=== PATIENT | male | born 1975 | race Two or more races ===

== ENCOUNTER 2021-09-10 09:10 | Inpatient (IN) | payer SELFPAY ==
[~2021-09-10] VITALS: Ht 195.6 cm; Wt 88.6 kg
[~2021-09-10 09:10] MED LIST: CLAR10CA3 PO; FOLIC ACID 1 MG TAB PO SCH; LORA-385 PO; MOME50SP; MULTIVITAMINS/MINERALS THERAP 1 TAB PO SCH; NORC1TAB8 PO; OMEP20TA7 OR; PRIL20CA9 PO; SOMA350T OR; SOMA350T PO; SUMA50TA2 PO; VICO5TAB PO; claritan PO
--- OUTSIDE RECORDS SUMMARY | 2021-09-10 09:20 | CCD ---
Author Author [facility] Organization [facility] Address Unknown Phone Unavailable Support Name Relationship Address Phone FED EX GROUND Next Of [facility] [address] [place] [phone] NO, ONE Next Of Kin - [place] [phone] NICKIE DAVILA Next Of Kin [address] [place] [address] [employer] Next Of Kin [address] [facility] [address] [place] [address] GABRIEL YU Next Of Kin [address] [place] [address] PAULINO CANCHOLA Next Of Kin Unknown [employer] Next Of Kin [address] [place] [address] Unavailable DARYN YU Next Of Kin [phone] [place] [address] [address] [place] [address] Re-disclosure Warning The records that you are about to access may contain information from federally-assisted alcohol or drug abuse programs. If such information is present, then the following federally mandated warning applies: This information has been disclosed to you from records protected by federal confidentiality rules (42 CFR part 2). The federal rules prohibit you from making any further disclosure of this information unless further disclosure is expressly permitted by the written consent of the person to whom it pertains or as otherwise permitted by 42 CFR part 2. A general authorization for the release of medical or other information is NOT sufficient for this purpose. The Federal rules restrict any use of the information to criminally investigate or prosecute any alcohol or drug abuse patient.The records that you are about to access may contain highly sensitive health information, the redisclosure of which is protected by Article 27-F of the [place] State Public Health law. If you continue you may have access to information: Regarding HIV / AIDS; Provided by facilities licensed or operated by the [facility] Office of Mental Health; or Provided by the [facility] Office for People With Developmental Disabilities. If such information is present, then the following [facility] mandated warning applies: This information has been disclosed to you from confidential records which are protected by state law. State law prohibits you from making any further disclosure of this information without the specific written consent of the person to whom it pertains, or as otherwise permitted by law. Any unauthorized further disclosure in violation of state law may result in a fine or snf sentence or both. A general authorization for the release of medical or other information is NOT sufficient authorization for further disc losure. Family History Family Member Name Family Member Gender Family Member Status Date o f Status Description Data Source(s) Unknown Female Problem MEDENT ([facility]) Medications No Information Insurance Providers Payer name Policy type / Coverage type Policy ID Covered republican ID Covered republican's relationship to yo Policy Yo Plan Information EXCELLUS C [id number] Self [id number] HMO BLUE [id number] SP [id number] BS Exchange (Epo,Hmo,Ppo) Commercial [id number] Self BC/BS Of [place] TSCA [id number] Self BC/BS Of [place] Commercial [id number] Self SELF PAY UNAVAILABLE SP UNAVAILA BLE O UNAVAILABLE UNAVAILA BLE BC/BS Of [place] Commercial [id number] Self BC/BS OF [place] P [id number] S [id number] [id number] [facility] [id number] SP [id number] [facility] PLAN [id number] SP [id number] [facility] [id number] 18 [id number] SELF PAY ONLY [id number] SP [id number] BC/BS Of [place] Commercial [id number] Self SELF PAY ONLY UNAVAILABLE SP UNAV AILABLE BCBS [place] WATN PPO [id number]/307 [id number] SP [id number] Problems, Conditions, and Diagnoses No Information Surgeries/Procedures No Information Results No Information Social History No Information
--- OUTSIDE RECORDS SUMMARY | 2021-09-10 09:39 | CCD ---
Author Author [facility] Organization [facility] Address Unknown Phone Unavailable Support Name Relationship Address Phone FED EX GROUND Next Of [facility] [address] [place] [phone] NO, ONE Next Of Kin - [place] [phone] NICKIE DAVILA Next Of Kin [address] [place] [address] [employer] Next Of Kin [address] [facility] [address] [place] [address] GABRIEL YU Next Of Kin [address] [place] [address] PAULINO CANCHOLA Next Of Kin Unknown [employer] Next Of Kin [address] [place] [address] Unavailable DARYN YU Next Of Kin [phone] [place] [address] [address] [place] [address] Re-disclosure Warning The records that you are [...] is protected by Article 27-F of the [place] State Public Health law. If you continue you may have access to information: Regarding HIV / AIDS; Provided by facilities licensed or operated by the [facility] Office of Mental Health; or Provided by the [facility] Office for People With Developmental Disabilities. If such information is present, then the following [facility] mandated warning applies: This information has [...] law may result in a fine or penitentiary sentence or both. A general authorization for the release of medical or other information is NOT sufficient authorization for further disc losure. Family History Family Member Name Family Member Gender Family Member Status Date o f Status Description Data Source(s) Unknown Female Problem MEDENT ([facility]) Medications No Information Insurance Providers Payer name Policy type / Coverage type Policy ID Covered libertarian ID Covered libertarian's relationship to yo Policy Yo Plan Information EXCELLUS C [id number] Self [id number] HMO BLUE [id number] SP [id number] BS Exchange (Epo,Hmo,Ppo) Commercial [id number] Self BC/BS Of [place] GetO2 [id number] Self BC/BS Of [place] Commercial [id number] Self SELF PAY UNAVAILABLE SP UNAVAILA BLE O UNAVAILABLE UNAVAILA BLE BC/BS Of [place] Commercial [id number] Self BC/BS OF [place] P [id number] S VY [id number] [facility] COMMUNITY PLAN [facility] [id number] SP [id number] [facility] PLAN [id number] SP [id number] [facility] [id number] 18 [id number] SELF PAY ONLY [id number] SP [id number] BC/BS Of [place] Commercial [id number] Self SELF PAY ONLY UNAVAILABLE SP UNAV AILABLE BCBS [place] WATN PPO [id number]/307 [id number] SP [id number] Problems, Conditions, and Diagnoses No Information Surgeries/Procedures No Information Results No Information Social History No Information
[2021-09-10] MEDS ORDERED: dexameTHASONE 4 MG/ML 1ML VIAL (J1100 PER 1MG) IV ONE (09:40)
[2021-09-10] MEDS ORDERED: NS 500 ML IV ONE (09:40)
[2021-09-10] MEDS: COMBIVENT RESPIMAT 100-20MCG INHALER 4GM INH SCH ×3 (09:55→10:54)
[2021-09-10 09:57] LABS: ABG BASE EXCESS 2.1 (-2.0-2.0); ABG HCO3 26.3 MEQ/L (22.0-26.0); ABG O2 SATURATION 99.4 % (95.0-99.0); ABG PARTIAL PRESSURE CO2 39.6 mmHg (35.0-45.0); ABG PARTIAL PRESSURE O2 222.9 mmHg (75.0-100.0); ABG STANDARD HCO3 26.4 MEQ/L (22.0-26.0); ABG TOTAL CO2 27.5 MEQ/L (22.0-29.0)
[2021-09-10 10:09] LABS: HEMATOCRIT 42.1 % (42.0-52.0); HEMOGLOBIN 13.7 g/dl (13.5-17.5); MEAN CORPUSCULAR HEMOGLOBIN 31.3 pg (27.0-33.0); MEAN CORPUSCULAR HGB CONC 32.5 g/dl (32.0-36.5); MEAN CORPUSCULAR VOLUME 96.1 fl (80.0-96.0); PLATELET COUNT, AUTOMATED 221 10^3/uL (150-450); RED BLOOD COUNT 4.38 10^6/uL (4.30-6.10); WHITE BLOOD COUNT 11.5 10^3/uL (4.0-10.0)
--- NOTE | 2021-09-10 10:15 | REP ---
INDICATION: Coronavirus workup. COMPARISON: 10/27/2015. TECHNIQUE: Single portable AP view of the chest was performed. FINDINGS: There is dense infiltrate in the right mid and lower lung. The other bilateral lung johnson demonstrate mild diffuse interstitial infiltrate. The heart is not enlarged. The mediastinal silhouette is grossly unremarkable. IMPRESSION: Dense infiltrate right mid and lower lungs. Mild diffuse interstitial infiltrate bilaterally. <Electronically signed by Hugo Prado > 09/10/21 [id number]
[2021-09-10] MEDS ORDERED: OMEP-218 PO (10:21)
[2021-09-10 10:24] LABS: INR 1.25; PROTHROMBIN TIME 16.2 SECONDS (12.7-14.5)
[2021-09-10 10:25] LABS: PARTIAL THROMBOPLASTIN TIME 36.6 SECONDS (25.9-37.0)
[2021-09-10] MEDS ORDERED: HOME MED LIST COMPLETE! XX SCH (10:25)
[2021-09-10 10:27] LABS: D-DIMER QUANT 969.82 ng/ml (<500)
[2021-09-10] MEDS ORDERED: AZITHROMYCIN INJ 500 MG, VIAL MATE ADAPTER 1 EACH in NS 250 ML IV ONE (10:35)
[2021-09-10] MEDS ORDERED: cefTRIAXone SOD 2 GM in D5W MINI-BAG PLUS 50 ML IV ONE (10:35)
[2021-09-10 10:39] LABS: BASOPHILS 1 % (0-1); LYMPHOCYTES 6 % (16-44); NEUTROPHILS 80 % (28-66)
[2021-09-10 10:40] LABS: PLATELET ESTIMATE NORMAL (NORMAL)
[2021-09-10 10:48] LABS: ALBUMIN 3.2 GM/DL (3.2-5.2); ALT/SGPT 17 U/L (12-78); BILIRUBIN,TOTAL 0.6 MG/DL (0.2-1.0); BLOOD UREA NITROGEN 17 MG/DL (7-18); CALCIUM LEVEL 9.2 MG/DL (8.5-10.1); CARBON DIOXIDE LEVEL 28 MEQ/L (21-32); CHLORIDE LEVEL 99 MEQ/L (98-107); CK-MB VALUE MASS 1.4 NG/ML (<3.6); CPK CREATINE PHOSPHOKINASE 66 U/L (39-308); CREATININE FOR GFR 1.01 MG/DL (0.70-1.30); FERRITIN 233 NG/ML (26-388); GLOMERULAR FILTRATION RATE > 60.0 (>60); GLUCOSE, FASTING 119 MG/DL (70-100); LDH LACTATE DEHYDROGENASE 107 U/L (87-241); MB/CK RELATIVE INDEX 2.12 (< OR =4); POTASSIUM SERUM 4.1 MEQ/L (3.5-5.1); SODIUM LEVEL 136 MEQ/L (136-145); TOTAL PROTEIN 6.8 GM/DL (6.4-8.2); TROPONIN I < 0.02 NG/ML (< 0.10)
[2021-09-10] MEDS ORDERED: ISOVUE-370 76% 100ML VIAL As Ordered ONE (11:43)
[2021-09-10] MEDS ORDERED: LORazepam 2 MG TAB PO PRN (12:10)
[2021-09-10 12:52] LABS: RSV AMPLIFICATION NEGATIVE (NEGATIVE)
[2021-09-10] MEDS ORDERED: THIAMINE 100 MG TAB PO SCH (13:00)
[2021-09-10] MEDS ORDERED: DOXYCYCLINE HYCLATE 100 MG in D5W MINI-BAG PLUS 100 ML IV SCH (13:00)
[2021-09-10] MEDS ORDERED: VANCOMYCIN HCL 750 MG, VIAL MATE ADAPTER 1 EACH in NS 250 ML IV SCH (13:00)
--- NOTE | 2021-09-10 13:11 | REP ---
INDICATION: rule out PE COMPARISON: None. TECHNIQUE: CT angiography of the chest attention pulmonary arteries after the intravenous administration of 75 cc Isovue 370. FINDINGS: There is excellent visualization of the pulmonary arterial vasculature. There are no focal filling defects present that would be considered consistent with acute pulmonary emboli. The thoracic aorta is within normal limits. There is no mediastinal or hilar adenopathy. Borderline right hilar lymph nodes are noted. There are no pleural or pericardial effusions. The imaged osseous structures and imaged upper abdomen are within normal limits. Evaluation of the lung johnson shows bilateral patchy interstitial and airspace opacities particularly in the lower lobes and right greater than left. IMPRESSION: 1. There is no evidence of a pulmonary embolus none. 2. Diffuse bilateral opacities as described above consistent with pneumonia. <Electronically signed by Anil Medina > 09/10/21 [id number]
[2021-09-10] MEDS ORDERED: PIPERACILLIN/TAZOBACTAM SOD 3.375 GM in D5W MINI-BAG PLUS 50 ML IV SCH (14:00)
[2021-09-10] MEDS ORDERED: VANCOMYCIN HCL 1,000 MG, VIAL MATE ADAPTER 1 EACH in NS 250 ML IV ONE (14:00)
[2021-09-10] MEDS ORDERED: SODIUM CHLORIDE 0.9% 1000ML IV SCH (14:35)
[2021-09-10] MEDS ORDERED: VANCOMYCIN HCL 750 MG, VIAL MATE ADAPTER 1 EACH in NS 250 ML IV ONE (15:00)
[2021-09-10 15:01] LABS: LIPASE 45 U/L (73-393)
[2021-09-10 16:49] LABS: HIV 1&2 SCREEN CENTAUR NEGATIVE (NEGATIVE)
[2021-09-10] MEDS ORDERED: KETOROLAC TROMETHAMINE 10 MG TAB PO ONE (16:55)
--- NOTE | 2021-09-10 17:07 | HPEPDOC ---
[facility] Medical History & Physical Date of Admission Sep 10, 2021 Date of Service: Sep 10, 2021 Attending Physician: NASRIN DAVIS MD History and Physical CHIEF COMPLAINT: Shortness of breath, epigastric pain HISTORY OF PRESENT ILLNESS: Moe is a 46-year-old male who presents with shortness of breath, fatigue that started 3 days ago and has been worsening. Reports shortness of breath is present both at rest and with exertion. Reports minimally productive cough of yellow phlegm. Reports nausea without vomiting. Reports dysphagia which she describes as difficulty swallowing solids without difficulty swallowing liquids, pain. He tells me that he has not been eating as much due to difficulty swallowing and nausea. Patient does report a history of pancreatitis secondary to alcohol abuse and tells me that his current symptoms are "exactly" like when he had pancreatitis. Patient tells me he is not vaccinated for Covid, and has never been sick with Covid in the past. Patient does tell me he has not been seen by a provider in at least 3 years. Denies recent sick contacts, recent travel, recent illness. Reports headache. Denies fever/chills, changes in vision, chest pain, palpitations. Denies abd pain, changes in bowel movements, diarrhea, changes in urination, dysuria, numbness/tingling. In ED, CRP 24.3, D-dimer 969. Mild leukocytosis with WBC 11.5. ABG, troponins, CBC, CMP wnl. Blood culture, lactate pending. Patient received ceftriaxone and doxycycline for suspected bacterial pneumonia. CXR, as noted below. PAST MEDICAL HISTORY: 1. Pancreatitis 2/2 EtOH abuse 2. Chronic back pain 2/2 DDD PAST SURGICAL HISTORY: Denies SOCIAL HISTORY: Marital status: Single Resides in: Hotel Tobacco use: Chew tobacco for many years. Former smoker, quit 17 years ago, 10 year pack hx ETOH: "Four Lokos" 2-3 times a day, last drink 3-4 days ago Illicit drug use: Marijuana, smoking, edibles- last use 1 week ago. Endorses using "all drugs" in the past, but denies cocaine and heroine. FAMILY HISTORY: None ALLERGIES: Please see below. REVIEW OF SYSTEMS: CONSTITUTIONAL: Denies fever/chills HEENT: Reports occasional headache, recent epistaxis, dysphagia. Denies changes in vision, rhinorrhea, sore throat CARDIOVASCULAR: Denies chest pain, palpitations. RESPIRATORY: Reports shortness of breath, mildly productive cough of yellow phlegm. GASTROINTESTINAL: Reports nausea without vomiting. Denies abdominal pain, diarrhea, constipation. GENITOURINARY: Denies changes in urination, dysuria. MUSCULOSKELETAL: Reports fatigue, weakness. NEUROLOGICAL: Denies changes in sensation, numbness/tingling. HOME MEDICATIONS: Please see below. PHYSICAL EXAMINATION: VITAL SIGNS: Temperature 96.4, pulse 84, respiratory rate 33, blood pressure 143/71, pulse oximetry 94% on VenturiMask 15/40FiO2. GENERAL APPEARANCE: Alert, awake, laying in stretcher, generalized uncleanliness with unkempt appearance HEENT: NC/AT, EOMI, nares patent, dried blood in right nare, nasal discharge clear in left nare, moist mucous membranes, poor dentition CARDIOVASCULAR: Tachycardic, regular rhythm, normal heart sounds. LUNGS: CTA bilaterally, diminished breath sounds bilaterally throughout, no significant retractions or accessory muscle use. ABDOMEN: Soft, nontender, nondistended MUSCULOSKELETAL: Normal ROM, strength 5/5. EXTREMITIES: No edema, 2+ DP/PT pulses. NEUROLOGICAL: CN III-XII intact. PSYCHIATRIC: AOx3, no depressed/anxious mood. LABORATORY DATA: See below. IMAGING: (09/10) CXR Dense infiltrate right mid and lower lungs. Mild diffuse interstitial infiltrate bilaterally. (09/10) CTA chest 1. There is no evidence of a pulmonary embolus none. 2. Diffuse bilateral opacities as described above consistent with pneumonia. MICROBIOLOGY: Please see below. ASSESSMENT/PLAN: Moe is a 46-year-old male without significant past medical history presents with worsening shortness of breath and productive cough who was found to be COVID19 negative with dense infiltrate in right mid and lower lung on CXR, concerning for bacterial pneumonia. #SOB 2/2 bacterial pneumonia vs COVID19 PNA, acute CXR, CTA chest, as noted above. Unlikely PE. Continue supplemental oxygen, titrate to SpO2 >90% Order urine Legionella antigen, urine strep pneumo antigen Order procalcitonin Order MRSA PCR Blood cultures pending Start vancomycin 750 mg twice daily Start Zosyn 3.375g every 6 hours On Telemetry We will recheck CRP Continue monitoring daily labs #Hx pancreatitis 2/2 EtOH abuse, unlikely etiology for current presentation Patient's abdominal exam during evaluation upon admission was benign Will order lipase to r/o pancreatitis #EtOH abuse, chronic- stable Patient tells me he drinks 23 "Four Lokos" daily, with his last drink being 3-4 days ago. Start CIWA protocol #Tobacco dependence Patient tells me he is a former smoker and has been chewing tobacco for years. Patient may require NicoDerm patch while inpatient. #History recreational drug usestable Patient denies history of IV drug use, but endorses using "all the drugs" in the past. Order HIV, HCV #Chronic back pain 2/2 DDD, chronic- stable #DVT prophylaxis On Lovenox DIET: Regular ACTIVITY: As tolerated DISPO: Pending clinical improvement CODE STATUS: Full code Attending Attestation: I performed a history and physical examination of the patient and discussed his management with the resident. I reviewed the resident's note and agree with the documented findings and plan of care. Vital Signs Vital Signs Date Time Temp Pulse Resp B/P (MAP) Pulse Ox O2 Delivery O2 Flow Rate FiO2 09/10/21 11:00 90 34 152/79 (103) 100 Venturi Mask 40 09/10/21 09:44 15.0 09/10/21 09:20 96.4 Laboratory Data Labs 24H Laboratory Tests 2 09/10/21 09:51: Neutrophils (%) (Auto) , Nucleated Red Blood Cells % (auto) 0.0, Neutrophils 80H, Band Neutrophils 13H, Lymphocytes (Manual) 6L, Basophils (Manual) 1, Red Blood Cell Morphology NORMAL, Platelet Estimate NORMAL, Prothrombin Time 16.2H, Prothromb Time International Ratio 1.25, Activated Partial Thromboplast Time 36.6, Fibrinogen 640H, D-Dimer, Quantitative 969.82H, Blood Gas Bicarbonate Standard 26.4H, Arterial Blood pH 7.440, Arterial Blood Partial Pressure CO2 39.6, Arterial Blood Partial Pressure O2 222.9H, Arterial Blood Total CO2 27.5, Arterial Blood HCO3 26.3H, Arterial Blood Base Excess 2.1H, Arterial Blood Oxygen Saturation 99.4H, Anion Gap 9, Glomerular Filtration Rate > 60.0, Calcium Level 9.2, Magnesium Level 2.0, Ferritin 233, Total Bilirubin 0.6, Aspartate Amino Transf (AST/SGOT) 11, Alanine Aminotransferase (ALT/SGPT) 17, Alkaline Phosphatase 61, Lactate Dehydrogenase 107, Total Creatine Kinase 66, Creatine Kinase MB 1.4, Creatine Kinase MB Relative Index 2.12, Troponin I < 0.02, C- Reactive Protein, Quantitative 24.30H, Total Protein 6.8, Albumin 3.2, Albumin/Globulin Ratio 0.9 CBC/BMP Laboratory Tests 09/10/21 09:51 Microbiology Microbiology 09/10/21 Respiratory Virus Panel (PCR) (PIHL) - Final, Complete 09/10/21 Blood Culture, Received Pending 09/10/21 Blood Culture, Received Pending Home Medications Scheduled Loratadine (Claritin) 10 Mg Cap, 10 MG PO DAILY Omeprazole (Omeprazole) 20 Mg Capsule.dr, 20 MG PO BID Allergies Coded Allergies: No Known Drug Allergies (Verified Allergy, Unknown, 09/10/21) MAINE JORDAN OMS-4 Sep 10, 2021 12:03 Padma Caceres DO Sep 10, 2021 17:07 NASRIN DAVIS MD Sep 11, 2021 06:43
[2021-09-10 18:00] VITALS: BP 153/84
--- NOTE | 2021-09-10 19:06 | ECGEPIP ---
[facility] - ED Test Date: 2021-09-10 Pat Name: DAJUAN CANCHOLA Department: Room: - Gender: Male Dredgemaster: ZHANNA : 1975 Requested By: Shanta Seymour Order Number: [id number] Reading MD: Candi Verde Measurements Intervals [place] Rate: 90 P: 75 CT: 168 QRS: 78 QRSD: 86 T: 75 QT: 304 QTc: 371 Interpretive Statements Normal sinus rhythm Nonspecific T wave abnormality No prior Electronically Signed on 09-10-2021 19:05:47 EDT by Candi Verde
--- OUTSIDE RECORDS SUMMARY | 2021-09-10 20:21 | CCD ---
Author Author [facility] Organization [facility] Address Unknown Phone Unavailable Support Name Relationship Address Phone FED EX GROUND Next Of [facility] [address] [place] [phone] NO, ONE Next Of Kin - [place] [phone] NICKIE DAVILA Next [place] Kin [address] [place] [address] [employer] Next Of Kin [address] [facility] [address] [place] [address] GABRIEL YU Next Of Kin [address] [place] [address] PAULINO CANCHOLA Next Of Kin Unknown [employer] Next Of Kin [address] [place] [address] Unavailable DARYN YU Next Of Kin [id number] [place] [address] [address] [place] [address] Re-disclosure Warning The records that you are [...] is protected by Article 27-F of the [place] State Public Health law. If you continue you may have access to information: Regarding HIV / AIDS; Provided by facilities licensed or operated by the [facility] Office of Mental Health; or Provided by the [facility] Office for People With Developmental Disabilities. If such information is present, then the following [facility] mandated warning applies: This information has been [...] law may result in a fine or detention sentence or both. A general authorization for the release of medical or other information is NOT sufficient authorization for further disc losure. Family History Family Member Name Family Member Gender Family Member Status Date o f Status Description Data Source(s) Unknown Female Problem [facility] ([facility]) Medications No Information Insurance Providers Payer name Policy type / Coverage type Policy ID Covered alliance party ID Covered alliance party's relationship to yo Policy Yo Plan Information EXCELLUS C [id number] Self [id number] HMO BLUE [id number] SP [id number] BS Exchange (Epo,Hmo,Ppo) Commercial [id number] Self BC/BS Of [place] [id number] Self BC/BS Of [place] Commercial [id number] Self SELF PAY UNAVAILABLE SP UNAVAILA BLE O UNAVAILABLE UNAVAILA BLE BC/BS Of [place] Commercial [id number] Self BC/BS OF [place] P [id number] S [id number] [id number] [facility] COMMUNITY [facility] [id number] SP [id number] [facility] PLAN [id number] SP [id number] [facility] [id number] 18 [id number] SELF PAY ONLY [id number] SP [id number] BC/BS Of [place] Commercial [id number] Self SELF PAY ONLY UNAVAILABLE SP UNAV AILABLE BCBS [place] WATN PPO 302/307 [id number] SP [id number] Problems, Conditions, and Diagnoses No Information Surgeries/Procedures No Information Results No Information Social History No Information
[2021-09-11] MEDS ORDERED: VANCOMYCIN HCL 750 MG, VIAL MATE ADAPTER 1 EACH in NS 250 ML IV SCH ×4 (01:00)
[2021-09-11] MEDS ORDERED: ENOXAPARIN 40MG/0.4ML SYRINGE (J1650 PER 10MG) SC SCH (09:00)
--- NOTE | 2021-09-11 10:20 | DS.PDOC ---
Discharge Summary General Date of Admission Sep 10, 2021 at 13:07 Date of Discharge 09/10/21 Discharge Summary PROCEDURES PERFORMED DURING STAY: [None]. DISCHARGE DIAGNOSES: #Pancreatitis secondary to ethanol abuse #Chronic back pain #Medical noncompliance COMPLICATIONS/CHIEF COMPLAINT: Pneumonia. HISTORY OF PRESENT ILLNESS: From H&P 46-year-old male who presents with shortness of breath, fatigue that started 3 days ago and has been worsening. Reports shortness of breath is present both at rest and with exertion. Reports minimally productive cough of yellow phlegm. Reports nausea without vomiting. Reports dysphagia which she describes as difficulty swallowing solids without difficulty swallowing liquids, pain. He tells me that he has not been eating as much due to difficulty swallowing and nausea. Patient does report a history of pancreatitis secondary to alcohol abuse and tells me that his current symptoms are "exactly" like when he had pancreatitis. Patient tells me he is not vaccinated for Covid, and has never been sick with Covid in the past. Patient does tell me he has not been seen by a provider in at least 3 years. Denies recent sick contacts, recent travel, recent illness. Reports headache. Denies fever/chills, changes in vision, chest pain, palpitations. Denies abd pain, changes in bowel movements, diarrhea, changes in urination, dysuria, numbness/tingling. HOSPITAL COURSE: Patient was admitted for further evaluation and treatment for his acute hypoxic respiratory failure, which was deemed secondary to bacterial pneumonia. He was provided supplemental oxygen and parenteral antimicrobial therapy was implemented. Through the late evening he apparently decided to leave AGAINST MEDICAL ADVICE. DISCHARGE MEDICATIONS: Please see below. ALLERGIES: Please see below. LABORATORY DATA: Please see below. PROGNOSIS: Guarded/poor DISPOSITION: Left AGAINST MEDICAL ADVICE TIME SPENT ON DISCHARGE: 35 minutes. Vital Signs/I&Os Vital Signs Date Time Temp Pulse Resp B/P (MAP) Pulse Ox O2 Delivery O2 Flow Rate FiO2 09/10/21 20:14 76 22 139/72 (94) 99 Nasal Cannula 6.0 09/10/21 14:30 40 09/10/21 09:20 96.4 I&O- Last 24 Hours up to 6 AM 09/11/21 06:00 Intake Total 1125 ml Balance 1125 ml Laboratory Data Labs 24H Laboratory Tests 2 09/10/21 11:54: Coronavirus (COVID-19)(PCR) NEGATIVE, Influenza Type A (RT-PCR) NEGATIVE, Influenza Type B (RT-PCR) NEGATIVE, Respiratory Syncytial Virus (PCR) NEGATIVE Microbiology Microbiology 09/10/21 Respiratory Virus Panel (PCR) (PHIL) - Final, Complete 09/10/21 Blood Culture - Preliminary, Resulted No growth after 24 hours . All specim... 09/10/21 Blood Culture - Preliminary, Resulted No growth after 24 hours . All specim... Discharge Medications Scheduled Loratadine (Claritin) 10 Mg Cap, 10 MG PO DAILY, (Reported) Omeprazole (Omeprazole) 20 Mg Capsule.dr, 20 MG PO BID, (Reported) Allergies Coded Allergies: No Known Drug Allergies (Verified Allergy, Unknown, 09/10/21) NASRIN DAVIS MD Sep 11, 2021 10:20
[2021-09-11] MEDS ORDERED: cefTRIAXone SOD 1 GM in D5W MINI-BAG PLUS 50 ML IV SCH (11:00)
== END 2021-09-10 20:30 | disposition left against medical advice (07) | DRG 139 ==
LOC: M ED 09:10 → M ED INP 13:07
PROVIDERS: ADMIT Internal Medicine; ATTEND Internal Medicine
DX: J15.9 Unspecified bacterial pneumonia (principal); F10.10 Alcohol abuse, uncomplicated; F17.220 Nicotine dependence, chewing tobacco, uncomplicated; Z91.19 Patient's noncompliance with other medical treatment and regimen; Z20.822 Contact with and (suspected) exposure to COVID-19

== ENCOUNTER 2023-02-15 06:10 | Emergency (ER) | payer SELFPAY ==
[~2023-02-15 06:10] MED LIST changes: -FOLIC ACID 1 MG TAB PO SCH; -MULTIVITAMINS/MINERALS THERAP 1 TAB PO SCH; +NASO50SP3; +OMEP-173 PO
[2023-02-15] MEDS ORDERED: NS 1,000 ML IV ONE (06:20)
[2023-02-15 07:03] LABS: BASO # 0.1 10^3/uL (0.0-0.2); BASO % 1.3 % (0.0-1.0); EOS # 0.1 10^3/uL (0.0-0.5); EOS % 3.3 % (0.0-3.0); HEMOGLOBIN 9.5 g/dl (13.5-17.5); LYMPH # 1.2 10^3/uL (1.5-5.0); LYMPH % 30.6 % (24.0-44.0); MEAN CORPUSCULAR HEMOGLOBIN 30.4 pg (27.0-33.0); MEAN CORPUSCULAR HGB CONC 30.6 g/dl (32.0-36.5); MONO # 0.3 10^3/uL (0.0-0.8); MONO % 7.3 % (2.0-8.0); NEUTROPHILS # 2.3 10^3/uL (1.5-8.5); NEUTROPHILS % 57.5 % (36.0-66.0); PLATELET COUNT, AUTOMATED 139 10^3/uL (150-450); RED BLOOD COUNT 3.13 10^6/uL (4.30-6.10)
[2023-02-15 07:19] LABS: ETHYL ALCOHOL (ETHANOL) 0.006 % (0.000-0.010)
[2023-02-15 07:21] LABS: ACETAMINOPHEN LEVEL < 2.0 UG/ML (10.0-20.0); ALBUMIN 3.6 G/DL (3.2-5.2); ALKALINE PHOSPHATASE 74 U/L (46-116); ALT/SGPT 34 U/L (7.0-40); AST/SGOT 39 U/L (<34); BILIRUBIN,DIRECT 0.2 MG/DL (<0.4); BILIRUBIN,TOTAL 0.4 MG/DL (0.3-1.2); BLOOD UREA NITROGEN 18 MG/DL (9-23); CARBON DIOXIDE LEVEL 28 MMOL/L (20-31); CHLORIDE LEVEL 105 MMOL/L (98-107); CPK CREATINE PHOSPHOKINASE 277 U/L (46-171); CREATININE FOR GFR 0.99 MG/DL (0.70-1.30); GLOMERULAR FILTRATION RATE > 60.0 (>60); GLUCOSE, FASTING 107 MG/DL (60-100); POTASSIUM SERUM 3.1 MMOL/L (3.5-5.1); SALICYLATE LEVEL < 3.0 MG/DL (<30); SODIUM LEVEL 141 MMOL/L (136-145); TOTAL PROTEIN 6.5 G/DL (5.7-8.2)
[2023-02-15 07:23] LABS: THYROID STIMULATING HORMONE 2.769 uIU/ML (0.55-4.78)
[2023-02-15] MEDS ORDERED: NALOXONE 2MG/2ML SYRINGE IV STA (08:33)
[2023-02-15 09:21] VITALS: BP 131/79
== END 2023-02-15 09:28 | disposition home or self-care (01) ==
LOC: M ED 06:10
DX: F19.10 Other psychoactive substance abuse, uncomplicated (principal); F10.10 Alcohol abuse, uncomplicated; M54.9 Dorsalgia, unspecified
CPT/HCPCS: 36415; 80048; 80076; 80143; 82077; 82550; 82803; 84443; 85025; 93005; 93041; 94760; 96374; 99285; J2310